=== PATIENT | female | born 2000 | race Caucasian/White ===

== ENCOUNTER 2021-10-22 10:54 | Emergency (ER) | payer OTHER ==
[~2021-10-22] VITALS: Ht 165.1 cm; Wt 82.1 kg
[2021-10-22] MEDS ORDERED: MIDOTAB PO (11:01)
[2021-10-22] MEDS ORDERED: PSEUDOEPHEDRINE 30 MG TAB PO ONE (15:00)
[2021-10-22] MEDS ORDERED: IBUPROFEN 600MG TAB PO ONE (15:00)
[2021-10-22 15:55] VITALS: BP 137/72
[2021-10-22] MEDS ORDERED: guaiFENesin ER 600 MG TAB PO SCH (21:00)
== END 2021-10-22 16:53 | disposition home or self-care (01) ==
LOC: M ED 10:54
DX: U07.1 COVID-19 (principal); F17.200 Nicotine dependence, unspecified, uncomplicated; F17.290 Nicotine dependence, other tobacco product, uncomplicated; F12.10 Cannabis abuse, uncomplicated; Z88.8 Allergy status to other drugs, medicaments and biological substances

== ENCOUNTER 2022-01-14 13:33 | Emergency (ER) | payer OTHER ==
[~2022-01-14] VITALS: Ht 167.6 cm; Wt 81.8 kg
[~2022-01-14 13:33] MED LIST: MIDOTAB PO
[2022-01-14 16:38] VITALS: BP 133/71
== END 2022-01-14 16:48 | disposition home or self-care (01) ==
LOC: M ED 13:33
DX: S39.012A Strain of muscle, fascia and tendon of lower back, initial encounter (principal); S43.402A Unspecified sprain of left shoulder joint, initial encounter; V43.62XA Car passenger injured in collision with other type car in traffic accident, initial encounter; Y92.9 Unspecified place or not applicable; Y93.9 Activity, unspecified; Y99.9 Unspecified external cause status; Z88.8 Allergy status to other drugs, medicaments and biological substances

== ENCOUNTER 2022-02-22 21:41 | Emergency (ER) | payer OTHER ==
[~2022-02-22] VITALS: Ht 167.6 cm; Wt 81.8 kg
[2022-02-22 21:41] VITALS: BP 124/74
== END 2022-02-22 21:57 | disposition left against medical advice (07) ==
LOC: M ED 21:41
DX: Z53.21 Procedure and treatment not carried out due to patient leaving prior to being seen by health care provider (principal)